=== PATIENT | female | born 1960 | race Caucasian/White ===

== ENCOUNTER → 2021-04-28 10:54 | Outpatient (CLI) | payer OTHER, SELFPAY ==
[2021-04-28 11:48] LABS: Alanine Aminotransferase 15 IU/L (<35); Albumin 4.4 g/dL (3.5-5.0); Albumin Globulin Ratio 1.5 (1.0-2.8); Alkaline Phosphatase 59 U/L (38-126); Aspartate Aminotransferase 24 IU/L (14-36); BUN Creatinine Ratio 16.7 (6-22); Bilirubin Total 0.9 mg/dL (0.2-1.3); Blood Urea Nitrogen 12 mg/dL (7-17); Calcium 9.3 mg/dL (8.4-10.2); Carbon Dioxide 32 mmol/L (22-32); Chloride 106 mmol/L (98-107); Estimated Glomerular Filt Rate > 60.0 mL/min (>60); Glucose 98 mg/dL (80-110); Potassium 4.2 mmol/L (3.4-5.1); Sodium 140 mmol/L (137-145); Total Protein 7.4 g/dL (6.3-8.2)
[2021-04-28 12:20] LABS: Cancer Antigen 125 25.4 U/mL (0-35); Carcinoembryonic Antigen 1.8 ng/mL (0.1-3.0); HEMOLYSIS < 15 (0-50)
[2021-05-03 11:41] LABS: Human Epididymis Prot 4 43.9 pmol/L (0.0-96.5)
== END ==
PROVIDERS: PCP Family Medicine; Referring Provider Specialist; Visit Provider Specialist
DX: R18.8 Other ascites (principal); N85.8 Other specified noninflammatory disorders of uterus
CPT/HCPCS: 36415; 80053; 82378; 86304; 86305

== ENCOUNTER → 2021-04-30 12:02 | Outpatient (CLI) | payer OTHER, SELFPAY ==
--- NOTE | 2021-04-30 12:28 | DI.CT.S_ITS ---
PROCEDURE: CT ABDOMEN PELVIS W CON INDICATIONS: Palpable abd/pelvic mass and ascites TECHNIQUE: After the administration of oral and IV contrast, axial sections were acquired from the lung bases to the pubic symphysis. Coronal and sagittal reformats were performed. For radiation dose reduction, the following was used: automated exposure control, adjustment of mA and/or kV according to patient size. COMPARISON: [facility], US, US PELVIC COMPLETE, 04/28/2021, 10:48. FINDINGS: Image quality: Excellent. Lung bases: Unremarkable. Heart: Pacemaker leads. ABDOMEN: Liver: Small cyst in the right lobe of the liver seen dating back to 2013. Gallbladder: Unremarkable. Biliary ducts: Unremarkable. Pancreas: Unremarkable. Spleen: Unremarkable. Adrenal Glands: No nodule. Kidneys and Ureters: No hydronephrosis. Stomach and Bowel: Stomach, small bowel loops, and colon are unremarkable. Normal appendix. Peritoneum: No abnormal intraperitoneal fluid. No free air. No conspicuous peritoneal nodules. Ventral Wall: No hernia. Abdominal Nodes: No retroperitoneal or mesenteric adenopathy by size criteria. Vessels: Aorta and inferior vena cava are normal in size. PELVIS: Pelvic Organs: Large midline pelvic mass measuring 11.8 x 9 x 8 cm, (64 and ). This is slightly on the left and likely represents a large left ovarian mass. There is mild heterogeneity and punctate calcifications. The right ovary also appears enlarged and measures 3.9 x 3.4 x 3.3 cm, (69). Anteverted uterus has an elongated appearance measuring 10.7 cm in length. There is a small volume of fluid in the pelvic cul-de-sac. Bladder: Unremarkable. Pelvic Nodes: No enlarged lymph nodes. Miscellaneous: No inguinal hernias are seen. Bones: No aggressive appearing lesion. No compression fracture. IMPRESSION: 1. Large pelvic mass measuring 11.8 cm. This likely originates from the left ovary and is suspicious for malignant lesion. 2. Right ovary is also enlarged measuring 3.9 cm. 3. Small volume of fluid in the pelvic cul-de-sac. Recommend gynecological consultation. Patient may benefit from pelvic MRI with IV contrast for further characterization. Dictated by: Angelo Arguelles M.D. on 04/30/2021 at 13:42 Approved by: Angelo Arguelles M.D. on 04/30/2021 at 13:57
== END ==
PROVIDERS: PCP Family Medicine; Referring Provider Specialist; Visit Provider Specialist
DX: R18.8 Other ascites (principal); N85.8 Other specified noninflammatory disorders of uterus; N83.8 Other noninflammatory disorders of ovary, fallopian tube and broad ligament; Z95.0 Presence of cardiac pacemaker
CPT/HCPCS: 74177; Q9967